=== PATIENT | male | born 1935 | race Caucasian/White ===

== ENCOUNTER 2017-05-26 21:16 | Inpatient (IN) | payer MEDICARE ==
[~2017-05-26] VITALS: Ht 175.3 cm; Wt 71.8 kg
[~2017-05-26 21:16] MED LIST: AMLOPIDINE; ASPIRIN 32325 MG/TAB PO; ASPIRIN 81M81 MG/TA2 PO; BENICAR; CEPHALEXIN500 M1 PO; CLOPIDOGREL; HEART MEDICATIONS; HUMULIN 70/30 PE3 ML SC; HUMULIN 70/3100 U/ML SC; IMDUR 30MG30 MG/TAB PO; INSULIN 70/3100 U/ML SQ; INSULIN N (N100 U/ML SC; K-DUR 10 MEQ T10 MEQ PO; LASIX 20MG TABL20 MG PO; LIPITOR 10MG10 MG PO; LIPITOR 40MG TA40 MG PO; NITROSTAT0.4 MG/TAB SL; NORVASC 10MG10 MG PO; PERCOCET 325 MG1 TA2 PO; PLAVIX 75MG TAB75 MG PO
[2017-05-26] MEDS ORDERED: TAMIFLU 75MG75 MG PO (21:24)
[2017-05-26 22:20] LABS: MEAN CELL VOLUME 89 fl (80.0-100.0); MEAN CORPUSCULAR HGB CONC 33 g/dl (33.0-37.0); MEAN PLATELET VOLUME 11.8 fl (7.4-10.4); PLATELET COUNT 135 K/mm3 (130-400); REDCELL DISTRIBUTION WIDTH-CV 13.7 % (11.5-14.5)
[2017-05-26 22:21] LABS: HEMATOCRIT 35.7 % (42.0-52.0); HEMOGLOBIN 11.6 g/dl (13.5-18.0); MEAN CORPUSCULAR HEMOGLOBIN 29 pg (27.0-31.0)
[2017-05-26 22:30] LABS: ALBUMIN 4.1 gm/dL (3.5-5.0); BILIRUBIN,TOTAL 0.5 mg/dL (0.0-1.0); CALCIUM 8.5 mg/dL (8.4-10.2); CREATININE, serum 1.91 mg/dL (0.66-1.25); TOTAL PROTEIN 6.9 gm/dL (6.4-8.2)
[2017-05-26 22:37] LABS: BAND 24 % (0-10); BURR CELLS 1+; LYMPHOCYTE 18 % (20.0-51.0); NEUTROPHILS 51 % (42.0-75.2)
[2017-05-26 22:38] LABS: ANISOCYTOSIS 2+; HYPOCHROMIA 1+; MICROCYTOSIS 1+
[2017-05-26 22:45] LABS: TROPONIN-I 0.045 ng/mL (0.000-0.034)
[2017-05-26] MEDS ORDERED: VASOTEC 2.2.5 MG/TAB PO (23:08)
[2017-05-26] MEDS ORDERED: LASIX 40MG TABL40 MG PO (23:10)
[2017-05-26] MEDS ORDERED: K-DUR 10 MEQ T10 MEQ PO (23:11)
[2017-05-27] MEDS ORDERED: LIPITOR 80MG80 MG PO (03:34)
[2017-05-27] MEDS ORDERED: IMDUR 30MG30 MG/TAB PO (03:38)
[2017-05-27] MEDS ORDERED: TYLENOL 500MG500 MG PO (03:39)
[2017-05-27] MEDS ORDERED: BENADRYL25 M2 PO (03:40)
[2017-05-27 05:31] LABS: INFLUENZA A NEGATIVE; INFLUENZA B NEGATIVE
[2017-05-27 05:59] LABS: BASO % 0.3 % (0.0-2.0); EOS % 0.1 % (0-4.0); GRAN # 5.9 (1.4-6.5); GRAN % 74.8 % (42.2-75.2); LYMPH # 1.4 (1.2-3.4); LYMPH % 18.2 % (20.0-51.0); MEAN CELL VOLUME 90 fl (80.0-100.0); MEAN CORPUSCULAR HGB CONC 33 g/dl (33.0-37.0); MEAN PLATELET VOLUME 12.4 fl (7.4-10.4); MONO # 0.5 (0.1-0.6); MONO % 6.5 % (1.7-9.3); PLATELET COUNT 119 K/mm3 (130-400); RED BLOOD COUNT 3.91 M/mm3 (4.20-5.60); REDCELL DISTRIBUTION WIDTH-CV 13.9 % (11.5-14.5)
[2017-05-27 06:00] LABS: HEMOGLOBIN 11.5 g/dl (13.5-18.0); MEAN CORPUSCULAR HEMOGLOBIN 29 pg (27.0-31.0)
[2017-05-27 06:05] LABS: CALCIUM 8.1 mg/dL (8.4-10.2); CREATININE, serum 1.75 mg/dL (0.66-1.25); POTASSIUM 4.1 mmol/L (3.4-5.0)
[2017-05-27 06:36] VITALS: BP 102/50; PULSE 89; TEMP 98.9
[2017-05-27 08:21] VITALS: BP 121/51; PULSE 59; TEMP 98.6
[2017-05-27 11:43] VITALS: BP 109/45; PULSE 61; TEMP 97.7
[2017-05-27 15:32] VITALS: BP 112/41; PULSE 56; TEMP 98.3
[2017-05-27 20:54] VITALS: BP 153/60; PULSE 79; TEMP 100
[2017-05-28] VITALS (7 sets, daily range): BP systolic 103–146; BP diastolic 47–83; PULSE 60–86; TEMP 98.2–103
[2017-05-28 06:54] LABS: CALCIUM 7.9 mg/dL (8.4-10.2); CREATININE, serum 1.49 mg/dL (0.66-1.25); POTASSIUM 3.7 mmol/L (3.4-5.0)
[2017-05-29 01:04] VITALS: BP 106/44; PULSE 62; TEMP 99.6
[2017-05-29 04:52] VITALS: BP 115/101; PULSE 67; TEMP 98.3
[2017-05-29 06:47] LABS: CALCIUM 7.8 mg/dL (8.4-10.2); CREATININE, serum 1.41 mg/dL (0.66-1.25); POTASSIUM 3.8 mmol/L (3.4-5.0)
[2017-05-29 06:48] LABS: BASO % 0.1 % (0.0-2.0); GRAN # 5.1 (1.4-6.5); GRAN % 72.1 % (42.2-75.2); LYMPH # 1.5 (1.2-3.4); LYMPH % 21.6 % (20.0-51.0); MEAN CELL VOLUME 90 fl (80.0-100.0); MEAN CORPUSCULAR HGB CONC 33 g/dl (33.0-37.0); MEAN PLATELET VOLUME 12.4 fl (7.4-10.4); MONO # 0.4 (0.1-0.6); MONO % 5.8 % (1.7-9.3); PLATELET COUNT 119 K/mm3 (130-400); RED BLOOD COUNT 3.52 M/mm3 (4.20-5.60); REDCELL DISTRIBUTION WIDTH-CV 13.9 % (11.5-14.5)
[2017-05-29 06:49] LABS: HEMATOCRIT 31.5 % (42.0-52.0); HEMOGLOBIN 10.4 g/dl (13.5-18.0); MEAN CORPUSCULAR HEMOGLOBIN 30 pg (27.0-31.0)
[2017-05-29 08:22] VITALS: BP 120/51; PULSE 66; TEMP 99.7
[2017-05-29] MEDS ORDERED: OMNICEF 300MG300 MG PO (09:19)
[2017-05-29] MEDS ORDERED: ZITHROMAX500 M2 PO (09:19)
[2017-05-29] MEDS ORDERED: TESSALON P100 MG/CAP PO (09:20)
== END 2017-05-29 11:20 | disposition home or self-care (01) | DRG 193 ==
LOC: COL.ER 21:16 → MEDICAL 05-27 01:57 → COL.ER 05-27 01:57 → MEDICAL 05-27 03:00
PROVIDERS: Emergency Medicine; Family Medicine; Nurse Practitioner
DX: J18.9 Pneumonia, unspecified organism (principal); I21.A1 Myocardial infarction type 2; N17.9 Acute kidney failure, unspecified; A08.4 Viral intestinal infection, unspecified; Z66 Do not resuscitate; E86.0 Dehydration; I10 Essential (primary) hypertension; E11.40 Type 2 diabetes mellitus with diabetic neuropathy, unspecified; Z95.1 Presence of aortocoronary bypass graft; Z95.5 Presence of coronary angioplasty implant and graft; Z86.73 Personal history of transient ischemic attack (TIA), and cerebral infarction without residual deficits; Z79.4 Long term (current) use of insulin
CPT/HCPCS: 99222-AI; 99232-AI; 99239; A9284; J1644; J2405; J7030; J7120

== ENCOUNTER 2017-09-07 11:49 | Day surgery (SDC) | payer MEDICARE ==
[2005-09-26 11:22] VITALS: BP 187/95
[2017-09-07] VITALS (10 sets, daily range): BP systolic 105–115; BP diastolic 60–68; PULSE 55–61; TEMP 97.7
[~2017-09-07] VITALS: Ht 175.3 cm; Wt 153.0 kg
[~2017-09-07 11:49] MED LIST changes: +BENADRYL25 M2 PO; +K-TAB10 PO; +LASIX 40MG TABL40 MG PO; +LIPITOR 80MG80 MG PO; +OMNICEF 300MG300 MG PO; +TAMIFLU 75MG75 MG PO; +TESSALON P100 MG/CAP PO; +TYLENOL 500MG500 MG PO; +VASOTEC 2.2.5 MG/TAB PO; +ZITHROMAX500 M2 PO
[2017-09-07 12:26] LABS: INR 1.1 (0.8-3.0); PROTHROMBIN TIME 12.8 SECONDS (9.7-12.8)
[2017-09-07 12:33] LABS: HEMOGLOBIN 11.1 g/dl (13.5-18.0); MEAN CELL VOLUME 91 fl (80.0-100.0); MEAN CORPUSCULAR HEMOGLOBIN 30 pg (27.0-31.0); MEAN CORPUSCULAR HGB CONC 32 g/dl (33.0-37.0); MEAN PLATELET VOLUME 11.7 fl (7.4-10.4); PLATELET COUNT 166 K/mm3 (130-400); RED BLOOD COUNT 3.76 M/mm3 (4.20-5.60); REDCELL DISTRIBUTION WIDTH-CV 14.4 % (11.5-14.5)
[2017-09-07 12:34] LABS: HEMATOCRIT 34.3 % (42.0-52.0)
[2017-09-07 12:35] LABS: CALCIUM 8.7 mg/dL (8.4-10.2); CREATININE, serum 1.62 mg/dL (0.66-1.25)
== END 2017-09-07 15:22 | disposition home or self-care (01) ==
LOC: COL.CAR 11:49
PROVIDERS: Internal Medicine Cardiovascular Disease
DX: I08.3 Combined rheumatic disorders of mitral, aortic and tricuspid valves (principal); I27.20 Pulmonary hypertension, unspecified; I25.5 Ischemic cardiomyopathy; I11.0 Hypertensive heart disease with heart failure; I50.9 Heart failure, unspecified; E78.2 Mixed hyperlipidemia; I25.2 Old myocardial infarction; E11.42 Type 2 diabetes mellitus with diabetic polyneuropathy; E11.36 Type 2 diabetes mellitus with diabetic cataract; I25.119 Atherosclerotic heart disease of native coronary artery with unspecified angina pectoris; I25.799 Atherosclerosis of other coronary artery bypass graft(s) with unspecified angina pectoris; Z88.8 Allergy status to other drugs, medicaments and biological substances; Z79.82 Long term (current) use of aspirin; Z79.4 Long term (current) use of insulin; Z79.02 Long term (current) use of antithrombotics/antiplatelets; Z95.1 Presence of aortocoronary bypass graft; Z86.73 Personal history of transient ischemic attack (TIA), and cerebral infarction without residual deficits; Z85.828 Personal history of other malignant neoplasm of skin; Z83.3 Family history of diabetes mellitus; Z82.49 Family history of ischemic heart disease and other diseases of the circulatory system
CPT/HCPCS: G9654; J2250; J2704

== ENCOUNTER → 2017-10-25 | Outpatient (CLI) | payer MEDICARE | LOC: COL.PUL 10:27 | DX: Z01.818 Encounter for other preprocedural examination (principal); I34.0 Nonrheumatic mitral (valve) insufficiency ==